=== PATIENT | female | born 1955 | race Caucasian/White ===

== ENCOUNTER → 2017-11-30 | Outpatient (CLI) | payer BC ==
--- NOTE | 2017-12-03 11:45 | RADIOLOGY IMAGING REPORT ---
[place] [facility] [place] NAME: MARTHA SCHAEFFER : [id number] MR: [id number] V: [id number] EXAM DATE: ORDERING PHYSICIAN: QUINTON BRIAN TECHNOLOGIST: Naomy Orozco PROCEDURE:BILATERAL DIGITAL SCREENING MAMMOGRAM WITH CAD ASSISTED INTERPRETATION & 3D TOMOSYNTHESIS COMPARISON:None. Apparently the patient had mammograms many years ago that are not currently available INDICATIONS:SCREENING FINDINGS: A small amount of fibroglandular tissue is seen throughout the breasts. There is a focal area of increased density in the lateral portion of the Left breast on the Left CC view and just above the nipple line on the Left MLO view in Zone 2 for which spot compression view is recommended. DIAGNOSTIC CATEGORY 0--INCOMPLETE: NEED ADDITIONAL IMAGING EVALUATION. RECOMMENDATIONS: ADDITIONAL MAMMOGRAPHIC VIEWS REQUIRED: LEFT BREAST. IMPRESSION: BIRADS 0: Incomplete Additional view of Left breast recommended Dictated by: Echo Monique M.D. on 11/30/2017 at 12:07 Transcribed by: FIX on 11/30/2017 at 13:15 Approved by: Echo Monique M.D. on 12/03/2017 at 11:44 [facility]
== END ==
LOC: MAMO 02:57
PROVIDERS: ATTEND Family Medicine
DX: Z12.31 Encounter for screening mammogram for malignant neoplasm of breast (principal); R92.8 Other abnormal and inconclusive findings on diagnostic imaging of breast
CPT/HCPCS: 77063; 77067

== ENCOUNTER → 2017-12-07 | Outpatient (CLI) | payer BC ==
--- NOTE | 2017-12-10 11:02 | RADIOLOGY IMAGING REPORT ---
[place] [facility] [place] MARTHA SCHAEFFER : [id number] MR: [id number] V: [id number] EXAM DATE: [id number] ORDERING PHYSICIAN: QUINTON BRIAN TECHNOLOGIST: Naomy Orozco PROCEDURE:LEFT DIGITAL DIAGNOSTIC MAMMOGRAM WITH CAD ASSISTED INTERPRETATION & 3D TOMOSYNTHESIS COMPARISON:Prior mammograms 11/30/17. INDICATIONS:FURTHER EVAL THE PATIENT RETURNS FOR MEDIAL LATERAL VIEW OF THE LEFT BREAST AND SPOT COMPRESSION VIEW OF THE LEFT CC AND MLO PROJECTIONS. FINDINGS: A small amount of fibroglandular tissue is seen throughout the breasts. The additional images demonstrate a small nodular density in the approximate 2 - 3 o'clock position of the Left breast. Today's Left breast Ultrasound did demonstrate a small well circumscribed cyst in the 2 - 3 o'clock position which would account for this finding. There is no evidence of malignant appearing mass, malignant appearing calcifications or other secondary sign of malignancy in the Left breast. DIAGNOSTIC CATEGORY 2--BENIGN FINDING. RECOMMENDATIONS: ROUTINE MAMMOGRAM AND CLINICAL EVALUATION. IMPRESSION: BIRADS 2: Benign finding No significant abnormality of the Left breast is seen. There is a small cyst in the 2 - 3 o'clock position of the Left breast which accounts for the recent mammographic findings. Dictated by: Echo Monique M.D. on 12/07/2017 at 11:32 Transcribed by: RICK on 12/07/2017 at 13:45 Approved by: Echo Monique M.D. on 12/10/2017 at 11:02 [facility]
--- NOTE | 2017-12-10 11:03 | RADIOLOGY IMAGING REPORT ---
FACILITY: [facility] [place] PATIENT NAME: MARTHA SCHAEFFER : [id number] MR: [id number] V: [id number] EXAM DATE: ORDERING PHYSICIAN: QUINTON BRIAN TECHNOLOGIST: Samantha Velázquez PROCEDURE:US LEFT BREAST COMPARISON:None. INDICATIONS:FURTHER EVAL FINDINGS: Targeted Ultrasound was performed in the 12 to 4 o'clock position Left breast. There is a well circumscribed cyst measuring approximately 6mm in diameter in the 2 to 3 o'clock position of the Left breast which accounts for the mammographic findings. DIAGNOSTIC CATEGORY 2--BENIGN FINDING. RECOMMENDATIONS: ROUTINE MAMMOGRAM AND CLINICAL EVALUATION. IMPRESSION: BIRADS 2: Benign finding There is a 6mm cyst 2 to 3 o'clock position Left breast which accounts for the recent mammographic findings Dictated by: Echo Monique M.D. on 12/07/2017 at 11:33 Transcribed by: RICK on 12/07/2017 at 13:30 Approved by: Echo Monique M.D. on 12/10/2017 at 11:02 [facility]
== END ==
LOC: MAMO 02:44
PROVIDERS: ATTEND Family Medicine
DX: N60.02 Solitary cyst of left breast (principal)
CPT/HCPCS: 77065